=== PATIENT | male | born 1965 | race Caucasian/White ===

== ENCOUNTER 2025-07-29 13:18 | Outpatient (REF) | payer OTHER, SELFPAY ==
[2025-07-29 15:32] LABS: Abs Immature Grans 0.05 10^3/uL (0.0-0.06); HCT 46.1 % (40.0-50.0); HGB 15.7 g/dL (13.5-17.5); Immature Grans % 0.6 %; MCH 31.5 pg (27.0-33.0); MCHC 34.1 % (32.0-36.0); MCV 92 fL (80-95); MPV 9.6 fL (8.0-11.0); Platelet Count 302 10^3/uL (130-400); RBC 4.99 10^6/uL (4.36-5.78); RDW 14.0 % (11.8-14.1); RDW-SD 47.2 fL; WBC 8.20 10^3/uL (4.4-10.8)
[2025-07-29 15:55] LABS: ALT 56 U/L (16-63); AST 28 U/L (15-37); Albumin 3.9 g/dL (3.4-5.0); Alkaline Phosphatase 83 U/L (46-116); Anion Gap 9.5 mmol/L (3-11); BUN 12 mg/dL (7-18); Bilirubin, Total 0.4 mg/dL (0.2-1.0); CO2 27.5 mmol/L (21.0-32.0); Calcium 9.0 mg/dL (8.5-10.1); Calculated LDL 199 mg/dL (<100); Chloride 94 mmol/L (98-107); Cholesterol 265 mg/dL (<200); Estimated GFR 106.14 (mL/min/1.73m2); Glucose 108 mg/dL (74-106); HDL Cholesterol 42 mg/dL (>or=40); Potassium 4.8 mmol/L (3.5-5.1); Sodium 131 mmol/L (136-145); TSH 1.57 uIU/mL (0.36-3.74); Total Protein 7.6 g/dL (6.4-8.2); Triglyceride 121 mg/dL (<150)
[2025-07-29 16:02] LABS: Hemoglobin A1C 6.2 % (<5.7)
== END 2025-07-29 13:19 | disposition home or self-care (01) ==
LOC: NCHCN 13:18
PROVIDERS: Visit Provider Family Medicine
DX: Z01.818 Encounter for other preprocedural examination (principal)
CPT/HCPCS: 80053; 80061; 83036; 84443; 85025